=== PATIENT | female | born 1980 | race Caucasian/White ===

== ENCOUNTER 2017-07-26 06:00 | Emergency (ER) | payer SELFPAY ==
[2017-07-26 06:11] VITALS: BP 164/111
--- NOTE | 2017-07-26 07:41 | XRay Report ---
LEFT ANKLE RADIOGRAPHS INDICATION: Pain, injury, fall. COMPARISON: None similar. FINDINGS: AP, lateral and oblique left ankle radiographs demonstrate intact mortise, malleoli and talar dome contour. Mild ankle soft tissue swelling medially not excluded. CONCLUSION: Left ankle soft tissue swelling questioned without acute bony abnormality, as described. Please correlate. Thank you for the opportunity to participate in this patient's care.
--- NOTE | 2017-07-26 07:48 | XRay Report ---
LEFT KNEE RADIOGRAPHS INDICATION: Pain, injury, fall. COMPARISON: 11/09/2008. FINDINGS: AP, lateral and oblique left knee radiographs demonstrate stable alignment. Slight patellofemoral and tibial spine degenerative changes maybe developing. Medial compartment joint space not well evaluated. No suprapatellar effusion. Two threaded screws now noted extending AP at the anterior tibial tubercle. CONCLUSION: No acute left knee radiographic abnormality with slight degenerative changes and proximal tibial threaded screws, new since November 2008. Please correlate. Thank you for the opportunity to participate in this patient's care.
[2017-07-26] MEDS ORDERED: NORCO 5/325 PO ONE (08:38)
--- NOTE | 2017-07-26 08:45 | Emergency Department Report ---
ED Lower Extremity HPI - General Chief Complaint: Fall Stated Complaint: FALL Time Seen by Provider: 07/26/17 08:23 Source: patient Mode of arrival: Ambulatory Limitations: No Limitations - History of Present Illness Initial Comments: PT c/o fall at home 1 week ago. PT states she was walking down hallway and she slipped. PT reports L knee and L ankle injury. PT states she tried to rest and take OTC Motrin but the pain is not improving. PT states the swelling increased mildly. PT states she has crutches in her storage unit but she has not been using them. PT states she has crutches from previous L knee surgery ( work related injury years ago, hit by [employer]) MD Complaint: knee injury, ankle injury -: Sudden, week(s) (1) Injury: Knee: Left, Ankle: Left Type of Injury: other (slip and fall ) Place: home Severity: severe Severity scale (0 -10): 9 Improves With: NSAID, rest Worsens With: weight bearing, movement, palpation Context: fall Other Symptoms: other (denies loc, sob, sz) Associated Symptoms: swelling, able to partially bear weight - Related Data Previous Rx's Medication Instructions Recorded Last Taken Type Acetaminophen/Codeine [Tylenol #3] 1 tab PO Q6H PRN #12 tab 07/26/17 Unknown Rx Ibuprofen [Motrin] 600 mg PO Q8H PRN #15 tablet 07/26/17 Unknown Rx Allergies Allergy/AdvReac Type Severity Reaction Status Date / Time Penicillins Allergy Unknown Verified 02/16/15 18:12 shellfish derived Allergy Swelling Verified 02/16/15 18:12 ED Review of Systems ROS: Stated complaint: FALL Other details as noted in HPI Comment: All other systems reviewed and negative Constitutional: denies: fever Cardiovascular: denies: chest pain, syncope Genitourinary: denies: abnormal menses Musculoskeletal: joint swelling, arthralgia, other (denies neck pain ). denies : back pain Neurological: abnormal gait (due to leg pain ) ED Past Medical Hx - Past Medical History Previous Medical History?: No - Surgical History Past Surgical History?: Yes Additional Surgical History: left knee surgery x 4 - Social History Smoking Status: Never Smoker Substance Use Type: None - Medications Home Medications: Home Medications Medication Instructions Recorded Confirmed Last Taken Type Acetaminophen/Codeine [Tylenol #3] 1 tab PO Q6H PRN #12 tab 07/26/17 Unknown Rx Ibuprofen [Motrin] 600 mg PO Q8H PRN #15 tablet 07/26/17 Unknown Rx ED Physical Exam - General Limitations: No Limitations General appearance: alert, in no apparent distress - Head Head exam: Present: atraumatic, normocephalic, normal inspection - Eye Eye exam: Present: normal appearance, PERRL, EOMI. Absent: conjunctival injection - ENT ENT exam: Present: normal exam, mucous membranes moist, normal external ear exam - Neck Neck exam: Present: normal inspection, full ROM, other (no midline post C-spine tenderness ). Absent: tenderness - Respiratory Respiratory exam: Present: normal lung sounds bilaterally. Absent: respiratory distress, wheezes, rales, rhonchi, chest wall tenderness - Cardiovascular Cardiovascular Exam: Present: regular rate, normal rhythm, normal heart sounds - GI/Abdominal GI/Abdominal exam: Present: soft. Absent: tenderness - Extremities Exam Extremities exam: Present: normal capillary refill, joint swelling. Absent: pedal edema - Expanded Lower Extremity Exam Left Knee exam: Present: tenderness (medial joint line ttp ), full knee extension. Absent: normal inspection (multiple linear surgical scars to L knee ), swelling , laceration, ecchymosis, deformity Lower Leg exam: Present: normal inspection, full ROM. Absent: tenderness Ankle exam: Present: tenderness (to lateral malleous ). Absent: full ROM, abrasion, ecchymosis Neuro vascular tendon exam: Present: no vascular compromise. Absent: pulse deficit, abnormal cap refill Gait: Positive: not tested/not observed (PT refused to ambulate ) - Back Exam Back exam: Present: normal inspection, full ROM. Absent: tenderness, CVA tenderness (R), CVA tenderness (L), muscle spasm, paraspinal tenderness, vertebral tenderness - Neurological Exam Neurological exam: Present: alert, oriented X3 - Psychiatric Psychiatric exam: Present: normal affect, normal mood - Skin Skin exam: Present: warm, dry, intact, normal color ED Course Vital Signs 07/26/17 06:03 Temperature 98.1 F Pulse Rate 87 Respiratory 18 Rate Blood Pressure 164/111 O2 Sat by Pulse 99 Oximetry - Reevaluation(s) Reevaluation #1: 07/26/17 08:48 PT aware of XR results and plan of care. PT has no questions at this time. Reevaluation #2: 07/26/17 08:50 PT refused crutches, states she has them at home and will use them. - Pulse Oximetry Interpretation Digit-Finger Initial Pulse Oximetry Readin Actions Taken: none ED Lower Extremity MDM - Radiology Data Radiology results: report reviewed L knee - nap L ankle - no fx, minimal soft tissue swelling - Differential Diagnosis fracture, strain, sprain Critical Care Time: No Critical care attestation.: If time is entered above; I have spent that time in minutes in the direct care of this critically ill patient, excluding procedure time. ED Disposition Clinical Impression: Left medial knee pain Fall from standing Qualifiers: Encounter type: initial encounter Qualified Code(s): W19.XXXA - Unspecified fall, initial encounter Left ankle injury Qualifiers: Encounter type: initial encounter Qualified Code(s): S99.912A - Unspecified injury of left ankle, initial encounter Disposition: TO HOME OR SELFCARE Is pt being admited?: No Does the pt Need Aspirin: No Condition: Stable Instructions: Ankle Sprain (ED), Knee Sprain (ED), Crutch Instructions (ED), Ankle Stirrup Splint (ED), Hypertension (ED), Knee Immobilizer (ED) Additional Instructions: Follow up with [facility]TH[facility] in 3-5 days Follow up with PCP in the next week for BP recheck. Your bp was elevated on today's visit. This could be related to the pain that you are experiencing or you could have some underlying blood pressure issue Do not drive or drink alcohol after taking Tylenol #3 for pain Try treating your pain with Motrin first Use your crutches when you are up and active. Prescriptions: Acetaminophen/Codeine [Tylenol #3] 1 tab PO Q6H PRN #12 tab PRN Reason: Pain , Severe (7-10) Ibuprofen [Motrin] 600 mg PO Q8H PRN #15 tablet PRN Reason: Pain Referrals: PRIMARY CAREMD [Primary Care Provider] - 3-5 Days SHERICE FERGUSON MD [Staff Physician] - 3-5 Days [facility] [Outside] - 3-5 Days CORA SANDERS MD [Staff Physician] - 3-5 Days Forms: Accompanied Note, Work/School Release Form(ED) Time of Disposition: 08:50
== END 2017-07-26 09:10 | disposition home or self-care (01) ==
LOC: ED 06:00
DX: M25.562 Pain in left knee (principal); S99.912A Unspecified injury of left ankle, initial encounter; W18.30XA Fall on same level, unspecified, initial encounter; Y93.9 Activity, unspecified; Y92.9 Unspecified place or not applicable; Y99.8 Other external cause status